=== PATIENT | male | born 1955 | race Caucasian/White ===

== ENCOUNTER 2022-04-15 13:30 | Outpatient (CLI) | payer MEDICARE, OTHER, SELFPAY ==
--- NOTE | 2022-04-15 | ECHO_ITS ---
Patient Info Name: Trey Buck Age: 67 years : 1955 Gender: Male Ht: 71 in Wt: 268 lbs BSA: 2.51 m2 HR: 66 bpm BP: 157 / 86 mmHg Technical Quality: Fair Exam Date: 04/15/2022 2:14 PM Exam Location: [facility] Patient Status: Outpatient Admit Date: 04/15/2022 Staff Ordering Physician: David, [place] GRANADOS Master [place]: Elena Self RDCS Attending Provider: David, [place] GRANADOS Exam Type: CA echo doppler color flow Study Info Indications - ABNORMAL EKG Complete two-dimensional, color flow and Doppler transthoracic echocardiogram is performed. Summary 1. Complete two-dimensional, color flow and Doppler transthoracic echocardiogram is performed. 2. Normal LV size, mild LVH, normal LV systolic function, ejection fraction 65-70%, grade 1 diastolic dysfunction. Mild left atrial enlargement. Mitral valve leaflets mildly thickened, no significant mitral regurgitation. Mild aortic valve sclerosis, no stenosis or regurgitation. Trivial TR, RVSP 34 mmHg. Left Ventricle Left ventricular chamber dimension is normal. Left ventricular systolic function is normal, estimated at 65-70%. There is mildly increased left ventricular wall thickness. The left ventricular diastolic function is grade I diastolic dysfunction. Right Ventricle Right ventricular chamber dimension is normal. Right ventricular systolic function is normal. Left Atria Left atrial chamber dimension is mildly enlarged. Right Atria Right atrial chamber dimension is normal. Aortic Valve There is mild aortic valve sclerosis. There is no aortic valve stenosis. There is no aortic valve regurgitation. Pulmonic Valve The pulmonic valve is normal. There is no pulmonic regurgitation. Mitral Valve The mitral valve has thickened leaflets. There is no mitral valve stenosis. There is no mitral valve regurgitation. Tricuspid Valve The tricuspid valve leaflets are normal. There is trace tricuspid valve regurgitation. No pulmonary hypertension, estimated pulmonary arterial systolic pressure is 34 mmHg. Pericardium/Pleural The pericardium appears epicardial fat pad. There is no pericardial effusion. Inferior Vena Cava Normal inferior vena cava with >50% collapse upon inspiration consistent with normal right atrial pressure, 10 mmHg. Aorta The aortic root size at the sinus of Valsalva is normal. The prox ascending aorta size is normal. Left Ventricular Outflow Tract Name Value Normal LVOT 2D LVOT Diameter 2.1 cm LVOT Doppler LVOT Peak Gradient 5 mmHg LVOT Mean Gradient 2 mmHg LVOT VTI 20 cm LVOT VTI/AV VTI Ratio 0.8 LVOT Stroke Volume 66 ml LVOT CO 14.9 l/min LVOT CI 5.9 l/min/m2 Pulmonic Valve Name Value Normal PV
== END 2022-04-15 13:31 | disposition home or self-care (01) ==
LOC: ANHCARD 13:36
PROVIDERS: PCP Nurse Practitioner Family; Visit Provider Nurse Practitioner Family
DX: R94.31 Abnormal electrocardiogram [ECG] [EKG] (principal)
CPT/HCPCS: 93306